=== PATIENT | female | born 1985 | race African-American/Black ===

== ENCOUNTER 2022-06-18 09:21 | Emergency (ER) | payer MEDICAID ==
[~2022-06-18] VITALS: Ht 165.1 cm; Wt 100.0 kg
[~2022-06-18 09:21] MED LIST: CYTOTEC
[2022-06-18 09:36] VITALS: BP 172/86
[2022-06-18] MEDS ORDERED: LIDOCAINE HCL/PF 1% 10 MG/ML 5ML VIAL INFIL ONE (10:30)
[2022-06-18] MEDS ORDERED: BACITRACIN ZINC OINT UDPKT TOP ONE (10:30)
[2022-06-18] MEDS ORDERED: IBUPROFEN 600MG TABLET PO ONE (10:30)
[2022-06-18] MEDS ORDERED: ACETAMINOPHEN 325MG TABLET PO ONE (11:00)
== END 2022-06-18 11:34 | disposition home or self-care (01) ==
LOC: ER 09:21
DX: S61.212A Laceration without foreign body of right middle finger without damage to nail, initial encounter (principal); I10 Essential (primary) hypertension; X99.8XXA Assault by other sharp object, initial encounter; Y93.89 Activity, other specified; Y92.89 Other specified places as the place of occurrence of the external cause; Y99.8 Other external cause status
CPT/HCPCS: 12001; 99283; J3490; Z7610

== ENCOUNTER 2022-07-01 10:42 | Emergency (ER) | payer MEDICAID ==
[~2022-07-01] VITALS: Ht 172.7 cm; Wt 118.0 kg
[2022-07-01 10:52] VITALS: BP 172/83
== END 2022-07-01 15:34 | disposition home or self-care (01) ==
LOC: ER 10:42
DX: S61.212D Laceration without foreign body of right middle finger without damage to nail, subsequent encounter (principal); I10 Essential (primary) hypertension; Z48.02 Encounter for removal of sutures; X58.XXXD Exposure to other specified factors, subsequent encounter
CPT/HCPCS: 99281